=== PATIENT | male | born 1990 | race Two or more races ===

== ENCOUNTER 2018-03-17 21:19 | Emergency (ER) | payer SELFPAY ==
[~2018-03-17] VITALS: Ht 167.6 cm; Wt 79.4 kg
[2018-03-17 21:32] VITALS: BP 118/74
[2018-03-17 22:06] LABS: APPEARANCE,URINE CLEAR (CLEAR); BILIRUBIN,URINE NEGATIVE (NEGATIVE); BLOOD, URINE NEGATIVE Ery/uL (NEGATIVE); COLOR,URINE YELLOW (YELLOW); KETONES,URINE TRACE (NEGATIVE); LEUKOCYTE ESTERASE ,URINE NEGATIVE (NEGATIVE); NITRITE, URINE NEGATIVE (NEGATIVE); PROTEIN,URINE TRACE mg/dl (NEGATIVE); UGLUCOSE NEGATIVE (NEGATIVE)
[2018-03-17 22:13] LABS: BACTERIA,URINE Few /HPF (None Seen); MUCUS,URINE Few /LPF (None Seen); RBC,URINE 0-2 /HPF (0-2); SQUAMOUS EPITHELIAL CELL,UR Few /HPF (None Seen)
[2018-03-17] MEDS ORDERED: AZITHROMYCIN 250 MG TABLET PO ONE (22:30)
[2018-03-17] MEDS ORDERED: CEFTRIAXONE 500 MG VIAL IM ONE (22:30)
[2018-03-17] MEDS ORDERED: CEFTRIAXONE 500 MG VIAL ONE (22:56)
[2018-03-17] MEDS ORDERED: LIDOCAINE /MPF 1% VIAL 5 ML VIAL ONE (22:56)
[2018-03-17] MEDS ORDERED: AZITHROMYCIN 250 MG TABLET ONE (22:57)
== END 2018-03-17 23:08 | disposition home or self-care (01) ==
LOC: ER 21:19
DX: N50.812 Left testicular pain (principal); R59.1 Generalized enlarged lymph nodes
CPT/HCPCS: 76870-TC; 81000-TC; 87086-TC; J0696; J3490